=== PATIENT | female | born 1990 | race Caucasian/White ===

== ENCOUNTER 2020-08-30 09:25 | Emergency (ER) | payer BC, OTHER ==
[~2020-08-30] VITALS: Ht 165.1 cm; Wt 82.1 kg
[2020-08-30 09:32] VITALS: Ht 165.1 cm; Wt 82.1 kg
[2020-08-30 11:20] VITALS: BP 127/82
== END 2020-08-30 11:20 | disposition home or self-care (01) ==
LOC: ED 09:25
DX: S63.501A Unspecified sprain of right wrist, initial encounter (principal); X50.0XXA Overexertion from strenuous movement or load, initial encounter; Y93.89 Activity, other specified; Y92.89 Other specified places as the place of occurrence of the external cause; Y99.8 Other external cause status